=== PATIENT | male | born 1950 | race Caucasian/White ===

== ENCOUNTER 2021-12-04 09:26 | Inpatient (IN) | payer OTHER ==
[~2021-12-04] VITALS: Ht 165.1 cm; Wt 77.6 kg
[2021-12-04] VITALS (32 sets, daily range): BP systolic 100–155; BP diastolic 65–117
[2021-12-04] MEDS ORDERED: amlodipine (09:29)
[2021-12-04] MEDS ORDERED: metformin (09:29)
[2021-12-04] MEDS ORDERED: NICARDIPINE 40MG/200ML PREMIX 200 ML IV ONE (09:45)
[2021-12-04] MEDS ORDERED: LEVETIRACETAM 500MG PREMIX 100 ML IV ONE (09:45)
[2021-12-04] MEDS ORDERED: LABETALOL 5MG/ML SYR 20 MG/4 ML SYRINGE IV PRN (09:45)
[2021-12-04] MEDS ORDERED: DEXAMETHASONE 4MG/ML 1ML VIAL IV ONE (10:00)
[2021-12-04] MEDS ORDERED: IOHEXOL-350 100 ML BOTTLE ONE (10:05)
[2021-12-04 10:18] LABS: BASOPHILS % 0.7 % (0.0-2.0); EOSINOPHILS % 0.4 % (0.0-5.0); HEMATOCRIT. 44.9 % (42.0-52.0); HEMOGLOBIN. 15.2 g/dL (14.0-18.0); LYMPHOCYTES % 9.6 % (20.0-50.0); MEAN CORPUSCULAR HEMOGLOBIN 31.7 pg (28.0-32.0); MEAN CORPUSCULAR VOLUME 93.6 fL (80.0-94.0); MEAN PLATELET VOLUME 10.3 fl (7.4-10.4); MONOCYTES % 6.5 % (2.0-8.0); NEUTROPHILS % 82.8 % (40.0-76.0); PLATELET 135 x1000/uL (130-400); RED CELL DISTRIBUTION WIDTH 13.2 % (11.6-14.6)
[2021-12-04 10:24] LABS: CHLORIDE 99 mEq/L (98-107)
[2021-12-04 10:29] LABS: ETHANOL BLOOD < 10 mg/dL
[2021-12-04] MEDS ORDERED: NICARDIPINE 100 MG in SODIUM CHLORIDE 0.9% 60 ML IV PRN (10:30)
[2021-12-04] MEDS ORDERED: DEXT 5%/LACTATED RINGERS 1,000 ML IV SCH (11:00)
[2021-12-04] MEDS ORDERED: ONDANSETRON HCL 4MG/2ML INJ IV PRN (11:00)
[2021-12-04] MEDS ORDERED: DEXTROSE 50% WATER 50ML SYRINGE IV PRN (11:00)
[2021-12-04] MEDS ORDERED: ACETAMINOPHEN 650MG SUPP PR PRN (11:00)
[2021-12-04] MEDS ORDERED: SODIUM CHLORIDE 0.9% 1,000 ML IV SCH (11:00)
[2021-12-04] MEDS ORDERED: IPRATROPIUM/ALBUTEROL 0.5-3(2.5)MG/3ML NEB NEB PRN (11:00)
[2021-12-04] MEDS: DEXAMETHASONE 4MG/ML 1ML VIAL IV SCH ×2 (12:00→17:20)
[2021-12-04] MEDS: FAMOTIDINE 20MG/2ML VIAL IV SCH (12:35)
[2021-12-04] MEDS: BLOOD SUGAR DIAGNOSTIC STRIP TEST SCH ×2 (13:00→21:20)
[2021-12-04] MEDS: INSULIN LISPRO 100 UNITS/ML SUBCUT SCH ×3 (13:17→21:28)
[2021-12-04] MEDS ORDERED: GLIP10TA10 MT (16:51)
[2021-12-04] MEDS: [UNRECOGNIZED DRUG - REMARK] IV SCH ×4 (17:19)
[2021-12-04] MEDS: NICARDIPINE 100 MG in SODIUM CHLORIDE 0.9% 60 ML IV PRN (17:20)
[2021-12-04 18:18] LABS: CREATINE KINASE 186 IU/L (39-308)
[2021-12-04 18:19] LABS: CREATINE KINASE MB FRACTION 4.5 ng/mL (0.5-3.6)
[2021-12-04] MEDS ORDERED: LEVETIRACETAM 500MG PREMIX 100 ML IV SCH (21:00)
[2021-12-04] MEDS: LEVETIRACETAM 500MG PREMIX 100 ML IV SCH (21:21)
[2021-12-04 22:54] LABS: CREATINE KINASE 176 IU/L (39-308)
[2021-12-04 22:55] LABS: CREATINE KINASE MB FRACTION 3.8 ng/mL (0.5-3.6)
[2021-12-05] VITALS (96 sets, daily range): BP systolic 52–155; BP diastolic 29–119
[2021-12-05] MEDS: DEXAMETHASONE 4MG/ML 1ML VIAL IV SCH ×4 (01:01→18:00)
[2021-12-05 06:28] LABS: CHLORIDE 102 mEq/L (98-107)
[2021-12-05] MEDS: BLOOD SUGAR DIAGNOSTIC STRIP TEST SCH ×4 (06:47→21:00)
[2021-12-05] MEDS: INSULIN LISPRO 100 UNITS/ML SUBCUT SCH ×4 (06:56→22:00)
[2021-12-05] MEDS: DEXT 5%/LACTATED RINGERS 1,000 ML IV SCH ×2 (07:00→23:40)
[2021-12-05 07:31] LABS: HEMATOCRIT. 47.3 % (42.0-52.0); HEMOGLOBIN. 16.5 g/dL (14.0-18.0); MEAN CORPUSCULAR HEMOGLOBIN 32.6 pg (28.0-32.0); MEAN CORPUSCULAR VOLUME 93.5 fL (80.0-94.0); MEAN PLATELET VOLUME 11.4 fl (7.4-10.4); PLATELET 157 x1000/uL (130-400); RED BLOOD CELL COUNT 5.05 mill/uL (4.7-6.1); RED CELL DISTRIBUTION WIDTH 13.4 % (11.6-14.6)
[2021-12-05] MEDS: FAMOTIDINE 20MG/2ML VIAL IV SCH (08:07)
[2021-12-05] MEDS: LEVETIRACETAM 500MG PREMIX 100 ML IV SCH ×2 (08:08→22:01)
[2021-12-05] MEDS ORDERED: DEXTROSE 50% WATER 50ML SYRINGE IV PRN (11:45)
[2021-12-05] MEDS: [UNRECOGNIZED DRUG - REMARK] IV SCH ×4 (14:41)
[2021-12-05 16:12] LABS: PLATELET ESTIMATE NORMAL
[2021-12-05] MEDS: INSULIN GLARGINE UD 100 UNITS/ML SYR SUBCUT SCH (22:03)
[2021-12-06] VITALS (85 sets, daily range): BP systolic 104–161; BP diastolic 65–135
[2021-12-06] MEDS: DEXAMETHASONE 4MG/ML 1ML VIAL IV SCH ×5 (00:22→23:26)
[2021-12-06] MEDS: BLOOD SUGAR DIAGNOSTIC STRIP TEST SCH ×4 (05:57→20:27)
[2021-12-06] MEDS: INSULIN LISPRO 100 UNITS/ML SUBCUT SCH ×4 (06:02→21:56)
[2021-12-06] MEDS: FAMOTIDINE 20MG/2ML VIAL IV SCH (09:30)
[2021-12-06] MEDS: INSULIN GLARGINE UD 100 UNITS/ML SYR SUBCUT SCH ×2 (09:31→21:56)
[2021-12-06] MEDS: LEVETIRACETAM 500MG PREMIX 100 ML IV SCH ×2 (09:32→20:52)
[2021-12-06] MEDS: [UNRECOGNIZED DRUG - REMARK] IV SCH ×4 (16:11)
[2021-12-06] MEDS: DEXT 5%/LACTATED RINGERS 1,000 ML IV SCH (16:20)
[2021-12-06] MEDS: NICARDIPINE 100 MG in SODIUM CHLORIDE 0.9% 60 ML IV PRN (16:51)
[2021-12-07] VITALS (51 sets, daily range): BP systolic 99–157; BP diastolic 55–107
[2021-12-07] MEDS: DEXAMETHASONE 4MG/ML 1ML VIAL IV SCH ×4 (05:22→23:21)
[2021-12-07] MEDS: BLOOD SUGAR DIAGNOSTIC STRIP TEST SCH ×4 (06:16→20:43)
[2021-12-07] MEDS: INSULIN LISPRO 100 UNITS/ML SUBCUT SCH ×4 (06:19→22:05)
[2021-12-07] MEDS: DEXT 5%/LACTATED RINGERS 1,000 ML IV SCH ×2 (09:00→12:32)
[2021-12-07] MEDS: FAMOTIDINE 20MG/2ML VIAL IV SCH (09:12)
[2021-12-07] MEDS: LEVETIRACETAM 500MG PREMIX 100 ML IV SCH ×2 (09:12→22:04)
[2021-12-07] MEDS: INSULIN GLARGINE UD 100 UNITS/ML SYR SUBCUT SCH ×2 (09:12→22:06)
[2021-12-08] VITALS: BP 119/82
[2021-12-08 04:00] VITALS: BP 125/77
[2021-12-08] MEDS: DEXAMETHASONE 4MG/ML 1ML VIAL IV SCH ×2 (05:24→13:13)
[2021-12-08] MEDS: BLOOD SUGAR DIAGNOSTIC STRIP TEST SCH ×2 (06:47→11:45)
[2021-12-08 08:00] VITALS: BP 131/75
[2021-12-08] MEDS: LEVETIRACETAM 500MG PREMIX 100 ML IV SCH (09:12)
[2021-12-08] MEDS: FAMOTIDINE 20MG/2ML VIAL IV SCH (09:12)
[2021-12-08] MEDS: INSULIN LISPRO 100 UNITS/ML SUBCUT SCH ×2 (09:21→13:11)
[2021-12-08] MEDS: INSULIN GLARGINE UD 100 UNITS/ML SYR SUBCUT SCH (11:05)
[2021-12-08 12:00] VITALS: BP 125/73
[2021-12-08 16:00] VITALS: BP 130/74
[2021-12-08 16:29] VITALS: BP 132/74
[2021-12-08] MEDS ORDERED: INSULIN GLARGINE UD 100 UNITS/ML SYR SUBCUT SCH (22:00)
== END 2021-12-08 17:30 | disposition home or self-care (01) | DRG 64 ==
LOC: ER 09:34 → SUPCPDRO 12:43 → MICUNO 15:29 → EDBEDREQSVC 15:33 → EDBEDREQ 15:33 → ENRESERV 15:38 → 5WST 12-07 19:05
PROVIDERS: ADMIT Internal Medicine; ATTEND Internal Medicine
DX: I61.5 Nontraumatic intracerebral hemorrhage, intraventricular (principal); G93.41 Metabolic encephalopathy; E87.1 Hypo-osmolality and hyponatremia; G81.91 Hemiplegia, unspecified affecting right dominant side; R00.0 Tachycardia, unspecified; I10 Essential (primary) hypertension; E11.65 Type 2 diabetes mellitus with hyperglycemia; Z79.84 Long term (current) use of oral hypoglycemic drugs; Z79.899 Other long term (current) drug therapy; Z72.89 Other problems related to lifestyle
CPT/HCPCS: 36415; 70496; 70498; 71045; 80053; 80320; 82550; 82553; 82962; 83036; 84443; 84484; 85025; 92610; 93005; 93306; 93970; 97161; 97166; 99291; J1100; J1815; J1953; J3411; J3490; J7050; J7121; Q9967; G0480